=== PATIENT | male | born 1980 | race Caucasian/White ===

== ENCOUNTER → 2025-03-24 | Day surgery (SDC) | payer BC ==
[2025-03-17 16:59] VITALS: BMI 26.4
[~2025-03-24] MED LIST: GLYCOPYRROLATE 0.2 MG/ML 2 ML VIAL ONE; PROPOFOL 10 MG/ML 20 ML VIAL IV ONE
[2025-03-24 11:59] VITALS: TEMP 97.8
[2025-03-24] MEDS: LACTATED RINGERS 1,000 ML IV SCH (12:03)
[2025-03-24] MEDS: IV FLUID CONTINUATION 1,000 ML IV ONE (12:04)
--- NOTE | 2025-03-24 13:02 | P.PCN ---
Date of Procedure: 03/24/25 Procedure(s) Performed: BRIEF HISTORY: Patient is a 44-year-old pleasant white male scheduled for an elective colonoscopy as a part of screening for colon cancer. PROCEDURE PERFORMED: Colonoscopy with snare polypectomy. PREOPERATIVE DIAGNOSIS: Screening for colon cancer. IV sedation per Anesthesia. PROCEDURE: After informed consent was obtained, the patient, was brought into the endoscopy unit. IV sedation was administered by Anesthesia under continuous monitoring. Digital rectal examination was normal. Initially the Olympus CF-160 flexible video colonoscope was then inserted in the rectum, gradually advanced into the cecum without any difficulty. Careful examination was performed as the scope was gradually being withdrawn. Ileocecal valve and the appendiceal orifice were visualized and appeared normal. Prep was excellent. Mucosa of the cecum, ascending colon, transverse colon, descending colon, sigmoid colon, appeared normal. The rectosigmoid colon there was a 5 mm sessile polyp removed by cold snare polypectomy. Rest of the and rectum appeared normal. Retroflexion was performed in the rectum and no lesions were seen. The patient tolerated the procedure well. IMPRESSION: 5 mm rectosigmoid polyp status post cold snare polypectomy Rest of the colon appeared normal RECOMMENDATIONS: Findings of this examination were discussed with the patient as well as his family. He was advised to follow-up with the biopsy results. If the biopsy reveals adenoma he can have repeat colonoscopy in 5 years
[2025-03-24 13:09] VITALS: RESP 16
[2025-03-24 13:26] VITALS: BP 110/63; PULSE 63
== END ==
LOC: ORWHC2ENDO 10:39
PROVIDERS: ATTEND Internal Medicine Gastroenterology
DX: Z12.11 Encounter for screening for malignant neoplasm of colon (principal); D12.7 Benign neoplasm of rectosigmoid junction; E07.9 Disorder of thyroid, unspecified; Z79.890 Hormone replacement therapy; Z90.89 Acquired absence of other organs; Z98.890 Other specified postprocedural states
CPT/HCPCS: 88305; 45385; J2704; J1596